=== PATIENT | female | born 1970 | race Two or more races ===

== ENCOUNTER 2018-04-15 23:10 | Emergency (ER) | payer SELFPAY ==
[2018-04-15] MEDS ORDERED: Sodium Chloride 0.9% 1,000 ML IV ONE (23:21)
[2018-04-16] MEDS ORDERED: Thiamine 200 MG/2 ML MDV IM STA (00:03)
[2018-04-16] MEDS ORDERED: diphenhydrAMINE 50 MG/ML SDV IVPUSH ONE (00:05)
[2018-04-16] MEDS ORDERED: Sodium Chloride 0.9% 1,000 ML IV ONE (00:06)
--- NOTE | 2018-04-16 00:26 | EDM.PDOC ---
ED HPI GENERAL MEDICAL PROBLEM - General Chief Complaint: Chest Pain Stated Complaint: GENERAL Time Seen by Provider: 04/15/18 23:10 Source of Information: Reports: Patient, Family History Limitations: Reports: Altered Mental Status, Language Barrier - History of Present Illness INITIAL COMMENTS - FREE TEXT/NARRATIVE: 47 y.o. female -intoxicated- came with family to the ed. Pt was holding her chest, did not speak Hungarian. Pt was not cooperative. Pt lives with her son , who came home, noticing his mom is gowning/crying. He brought his mom with another relative's help to the ed. Pt was not able to give a HPI. BP 127/68 pulse 101 Temp 98 RR 24 pulse ox 98% on RA Onset Date: 04/15/18 Onset Time: 18:00 Duration: Hour(s):, Intermittent Location: Reports: Chest Quality: Reports: Ache, Burning Severity: Moderate Context: Reports: Other (pt was drinking heavily all day as per son) Associated Symptoms: Reports: Confusion, Weakness - Related Data Allergies Allergy/AdvReac Type Severity Reaction Status Date / Time No Known Allergies Allergy Verified 04/16/18 00:36 Home Meds: Home Meds .Insulin 24 units SQ DAILY 04/16/18 [History] Meloxicam 7.5 mg PO DAILY 04/16/18 [History] metFORMIN [Glucophage XR] 500 mg PO BIDMEALS 04/16/18 [History] ED ROS GENERAL - Review of Systems Review Of Systems: Unable To Obtain (crying) ED EXAM, GENERAL - Physical Exam Exam: See Below Exam Limited By: Language Barrier General Appearance: Alert, WD/WN, Anxious, Moderate Distress Eye Exam: Bilateral Eye: Normal Inspection Ears: Normal External Exam, Normal Canal Ear Exam: Bilateral Ear: Auricle Normal Nose: Normal Inspection, Normal Mucosa Throat/Mouth: Normal Lips, Normal Voice, No Airway Compromise, Other (dry mucosal membranes) Head: Atraumatic, Normocephalic Neck: Normal Inspection, Supple, Non-Tender, Full Range of Motion Respiratory/Chest: No Respiratory Distress, Lungs Clear Cardiovascular: Regular Rate, Rhythm, Tachycardia Peripheral Pulses: 1+: Radial (L) GI/Abdominal: Normal Bowel Sounds, Soft, Non-Tender, No Organomegaly (Female) Exam: Deferred Rectal (Female) Exam: Deferred Back Exam: Normal Inspection, Full Range of Motion Extremities: Normal Inspection, Normal Range of Motion, Non-Tender, No Pedal Edema Neurological: Alert, CN II-XII Intact, Other (intoxicated) Psychiatric: Anxious, Tearful Skin Exam: Warm, Dry, Intact, Normal Color, No Rash Lymphatic: No Adenopathy EKG INTERPRETATION EKG Date: 04/15/18 Time: 23:20 Rhythm: NSR Rate (Beats/Min): 113 [place]: Normal P-Wave: Present QRS: Normal ST-T: Normal QT: Normal Comparison: NA - No Prior EKG Course - Vital Signs Text/Narrative:: 47 y.o. female -intoxicated- came with family to the ed. Pt was holding her chest, did not speak Hungarian. Pt was not cooperative. Pt lives with her son , who came home, noticing his mom is gowning/crying. He brought his mom with another relative's help to the ed. Pt was not able to give a HPI. BP 127/68 pulse 101 Temp 98 RR 24 pulse ox 98% on RA PE: WNWD Hisp. female intoxicated came with family to the ED. Labs: CBC WNL, Na 141 K 3.4 ETOH 0.17 Glc 234 UA: U GLC > 1000. UDS neg GFR > 60. BUN 7 Cr 0.6 Impression: ETOH intoxication, dehydration Glucosuria Tx: NS, Thiamin and Benadryl Reexam: Pt was OX3 and ambulating independedly on D/C with family Plan: D/C with instructions. - Orders/Labs/Meds Orders: Active Orders 24 hr Category Date Time Status Chest 1V Frontal [CR] Stat Exams 04/15/18 23:18 Taken DRUG SCREEN, URINE ALERE [URCHEM] Stat Lab 04/15/18 23:53 Ordered HCG QUALITATIVE,URINE [URCHEM] Stat Lab 04/15/18 23:53 Ordered UA W/MICROSCOPIC [URIN] Stat Lab 04/15/18 23:53 Ordered Labs: Laboratory Tests 04/15/18 04/15/18 04/15/18 Range/Units 23:30 23:30 23:30 WBC 8.4 (4.5-12.0) X10-3/uL RBC 4.56 (3.23-5.20) x10(6)uL Hgb 14.2 (11.5-15.5) g/dL Hct 41.3 (30.0-51.3) % MCV 90.6 (80-96) fL MCH 31.1 (27.7-33.6) pg MCHC 34.4 (32.2-35.4) g/dL RDW 13.4 (11.5-15.5) % Plt Count 267 (125-369) X10(3)uL MPV 9.3 (7.4-10.4) fL Neut % (Auto) 32.5 L (46-82) % Lymph % (Auto) 57.3 H (13-37) % [place] % (Auto) 4.5 (4-12) % Eos % (Auto) 4 (1.0-5.0) % Baso % (Auto) 1 (0-2) % Neut # (Auto) 2.7 (1.6-8.3) # Lymph # (Auto) 4.8 (0.6-5.0) # [place] # (Auto) 0.4 (0.0-1.3) # Eos # (Auto) 0.4 (0.0-0.8) # Baso # (Auto) 0.1 (0.0-0.2) # Sodium 141 (135-145) mmol/L Potassium 3.4 L (3.5-5.3) mmol/L Chloride 104 (100-110) mmol/L Carbon Dioxide 23 (21-32) mmol/L BUN 7 (7-18) mg/dL Creatinine 0.6 (0.55-1.02) mg/dL Est Cr Clr Drug Dosing TNP Estimated GFR (MDRD) > 60 (>60) BUN/Creatinine Ratio 11.7 (9-20) Glucose 247 H (80-116) mg/dL Lactic Acid (0.4-2.2) mmol/L Calcium 8.1 L (8.6-10.2) mg/dL Creatine Kinase 109 (60-160) IU/L Troponin I < 0.017 L (<0.017-0.056) ng/mL Urine Color (YELLOW) Urine Appearance (CLEAR) Urine pH (5.0-6.5) Ur Specific [place] (1.010-1.025) Urine Protein (NEGATIVE) mg/dL Urine Glucose (UA) (NEGATIVE) mg/dL Urine Ketones (NEGATIVE) mg/dL Urine Occult Blood (NEGATIVE) Urine Nitrite (NEGATIVE) Urine Bilirubin (NEGATIVE) Urine Urobilinogen (NEGATIVE) mg/dL Ur Leukocyte Esterase (NEGATIVE) Urine RBC (0) Urine WBC (0) Ur Squamous Epith Cells (NS,R,O) Urine Bacteria (NS) Urine HCG, Qual (NEGATIVE) Urine Opiates Screen (NEGATIVE) Ur Oxycodone Screen (NEGATIVE) Ur Propoxyphene Screen (NEGATIVE) Ur Barbituates Screen (NEGATIVE) Ur Tricyclics Screen (NEGATIVE) Ur Phencyclidine Scrn (NEGATIVE) Ur Amphetamine Screen (NEGATIVE) Urine MDMA Screen (NEGATIVE) U Benzodiazepines Scrn (NEGATIVE) U Cocaine Metab Screen (NEGATIVE) U Marijuana (THC) Screen (NEGATIVE) Ethyl Alcohol 0.17 H* (<0.03) % 04/15/18 04/15/18 04/15/18 Range/Units 23:30 23:53 23:53 WBC (4.5-12.0) X10-3/uL RBC (3.23-5.20) x10(6)uL Hgb (11.5-15.5) g/dL Hct (30.0-51.3) % MCV (80-96) fL MCH (27.7-33.6) pg MCHC (32.2-35.4) g/dL RDW (11.5-15.5) % Plt Count (125-369) X10(3)uL MPV (7.4-10.4) fL Neut % (Auto) (46-82) % Lymph % (Auto) (13-37) % [place] % (Auto) (4-12) % Eos % (Auto) (1.0-5.0) % Baso % (Auto) (0-2) % Neut # (Auto) (1.6-8.3) # Lymph # (Auto) (0.6-5.0) # [place] # (Auto) (0.0-1.3) # Eos # (Auto) (0.0-0.8) # Baso # (Auto) (0.0-0.2) # Sodium (135-145) mmol/L Potassium (3.5-5.3) mmol/L Chloride (100-110) mmol/L Carbon Dioxide (21-32) mmol/L BUN (7-18) mg/dL Creatinine (0.55-1.02) mg/dL Est Cr Clr Drug Dosing Estimated GFR (MDRD) (>60) BUN/Creatinine Ratio (9-20) Glucose (80-116) mg/dL Lactic Acid 1.7 (0.4-2.2) mmol/L Calcium (8.6-10.2) mg/dL Creatine Kinase (60-160) IU/L Troponin I (<0.017-0.056) ng/mL Urine Color (YELLOW) Urine Appearance (CLEAR) Urine pH (5.0-6.5) Ur Specific [place] (1.010-1.025) Urine Protein (NEGATIVE) mg/dL Urine Glucose (UA) (NEGATIVE) mg/dL Urine Ketones (NEGATIVE) mg/dL Urine Occult Blood (NEGATIVE) Urine Nitrite (NEGATIVE) Urine Bilirubin (NEGATIVE) Urine Urobilinogen (NEGATIVE) mg/dL Ur Leukocyte Esterase (NEGATIVE) Urine RBC (0) Urine WBC (0) Ur Squamous Epith Cells (NS,R,O) Urine Bacteria (NS) Urine HCG, Qual Negative (NEGATIVE) Urine Opiates Screen Negative (NEGATIVE) Ur Oxycodone Screen Negative (NEGATIVE) Ur Propoxyphene Screen Negative (NEGATIVE) Ur Barbituates Screen Negative (NEGATIVE) Ur Tricyclics Screen Negative (NEGATIVE) Ur Phencyclidine Scrn Negative (NEGATIVE) Ur Amphetamine Screen Negative (NEGATIVE) Urine MDMA Screen Negative (NEGATIVE) U Benzodiazepines Scrn Negative (NEGATIVE) U Cocaine Metab Screen Negative (NEGATIVE) U Marijuana (THC) Screen Negative (NEGATIVE) Ethyl Alcohol (<0.03) % 04/15/18 Range/Units 23:53 WBC (4.5-12.0) X10-3/uL RBC (3.23-5.20) x10(6)uL Hgb (11.5-15.5) g/dL Hct (30.0-51.3) % MCV (80-96) fL MCH (27.7-33.6) pg MCHC (32.2-35.4) g/dL RDW (11.5-15.5) % Plt Count (125-369) X10(3)uL MPV (7.4-10.4) fL Neut % (Auto) (46-82) % Lymph % (Auto) (13-37) % [place] % (Auto) (4-12) % Eos % (Auto) (1.0-5.0) % Baso % (Auto) (0-2) % Neut # (Auto) (1.6-8.3) # Lymph # (Auto) (0.6-5.0) # [place] # (Auto) (0.0-1.3) # Eos # (Auto) (0.0-0.8) # Baso # (Auto) (0.0-0.2) # Sodium (135-145) mmol/L Potassium (3.5-5.3) mmol/L Chloride (100-110) mmol/L Carbon Dioxide (21-32) mmol/L BUN (7-18) mg/dL Creatinine (0.55-1.02) mg/dL Est Cr Clr Drug Dosing Estimated GFR (MDRD) (>60) BUN/Creatinine Ratio (9-20) Glucose (80-116) mg/dL Lactic Acid (0.4-2.2) mmol/L Calcium (8.6-10.2) mg/dL Creatine Kinase (60-160) IU/L Troponin I (<0.017-0.056) ng/mL Urine Color Yellow (YELLOW) Urine Appearance Slightly cloudy (CLEAR) Urine pH 5.0 (5.0-6.5) Ur Specific [place] 1.020 (1.010-1.025) Urine Protein Negative (NEGATIVE) mg/dL Urine Glucose (UA) >1000 H (NEGATIVE) mg/dL Urine Ketones Negative (NEGATIVE) mg/dL Urine Occult Blood Moderate H (NEGATIVE) Urine Nitrite Negative (NEGATIVE) Urine Bilirubin Negative (NEGATIVE) Urine Urobilinogen Normal (NEGATIVE) mg/dL Ur Leukocyte Esterase Negative (NEGATIVE) Urine RBC 5-10 (0) Urine WBC 0-5 (0) Ur Squamous Epith Cells Few H (NS,R,O) Urine Bacteria Few H (NS) Urine HCG, Qual (NEGATIVE) Urine Opiates Screen (NEGATIVE) Ur Oxycodone Screen (NEGATIVE) Ur Propoxyphene Screen (NEGATIVE) Ur Barbituates Screen (NEGATIVE) Ur Tricyclics Screen (NEGATIVE) Ur Phencyclidine Scrn (NEGATIVE) Ur Amphetamine Screen (NEGATIVE) Urine MDMA Screen (NEGATIVE) U Benzodiazepines Scrn (NEGATIVE) U Cocaine Metab Screen (NEGATIVE) U Marijuana (THC) Screen (NEGATIVE) Ethyl Alcohol (<0.03) % Meds: Medications Discontinued Medications Generic Name Dose Route Start Last Admin Trade Name Anabelle PRN Reason Stop Dose Admin Diphenhydramine HCl 50 mg 04/16/18 00:05 04/16/18 00:12 Benadryl IVPUSH 04/16/18 00:06 50 mg ONETIME ONE Administration Sodium Chloride 1,000 mls @ 999 mls/hr 04/15/18 23:21 04/15/18 23:27 Normal Saline IV 04/16/18 00:21 999 mls/hr .BOLUS ONE Administration Sodium Chloride 1,000 mls @ 999 mls/hr 04/16/18 00:06 04/16/18 00:35 Normal Saline IV 04/16/18 01:06 999 mls/hr .BOLUS ONE Administration Thiamine HCl 100 mg 04/16/18 00:03 04/16/18 00:12 Vitamin B-1 IM 04/16/18 00:04 100 mg ONETIME STA Administration Departure - Departure Time of Disposition: 01:37 Disposition: Home, Self-Care 01 Condition: Good Clinical Impression: ETOH abuse, Dehydration Instructions: Alcohol Intoxication, [id number], Dehydration, Adult, Easy-to- Read Referrals: PCP,None [Primary Care Provider] - Forms: ED Department Discharge, ED Return to Work/School Form Additional Instructions: Please increase water intake, please f/u with your PMD, please NO ETOH, Come back if your symptoms get worse acutely - My Orders Last 24 Hours: My Active Orders 04/15/18 23:18 Chest 1V Frontal [CR] Stat 04/15/18 23:53 DRUG SCREEN, URINE ALERE [URCHEM] Stat HCG QUALITATIVE,URINE [URCHEM] Stat UA W/MICROSCOPIC [URIN] Stat - Assessment/Plan Last 24 Hours: My Active Orders 04/15/18 23:18 Chest 1V Frontal [CR] Stat 04/15/18 23:53 DRUG SCREEN, URINE ALERE [URCHEM] Stat HCG QUALITATIVE,URINE [URCHEM] Stat UA W/MICROSCOPIC [URIN] Stat
--- NOTE | 2018-04-16 11:21 | CR ---
INDICATION: Chest pain. CHEST: An AP portable upright view of the chest was obtained 04/15/2018 and revealed the heart to be normal in size and shape. The pulmonary vasculature appears to be slightly congested, which could be on the basis of pulmonary vascular congestion but should be correlated clinically. The heart did not appear enlarged to strongly suggest CHF; however, an acute myocardial event could be the etiology for this appearance. Unusual pneumonia, such as minimal unusual pneumonia of viral etiology, cannot be excluded but is felt to be less likely. No consolidating pneumonia or effusion was seen. Overlying EKG leads are noted. The aorta is somewhat tortuous. IMPRESSION: No definite acute process but cannot exclude a mild degree of pulmonary vascular congestion. MTDD
== END 2018-04-16 02:10 | disposition home or self-care (01) ==
LOC: FB.ED 23:10
DX: F10.129 Alcohol abuse with intoxication, unspecified (principal); E86.0 Dehydration; E72.51 Non-ketotic hyperglycinemia; Y90.0 Blood alcohol level of less than 20 mg/100 ml
CPT/HCPCS: 36415; 71045; 80048; 80305; 81001; 81025; 82550; 83605; 84484; 85025; 96361; 96372; 96374; 99283; 99284; G0480; J1200; J3411; J7030